=== PATIENT | male | born 1995 | race African-American/Black ===

== ENCOUNTER 2025-01-06 15:46 | Emergency (ER) | payer MEDICAID, SELFPAY ==
--- NOTE | ~2025-01-06 | XR_ITS ---
CHEST RADIOGRAPH, PA AND LATERAL CLINICAL HISTORY: cough, BODY ACHES, CHILLS, SORE THROAT FOR 5 DAYS . COMPARISON: None available TECHNIQUE: PA and lateral views of the chest. FINDINGS The cardiomediastinal silhouette is unremarkable. The lungs are clear. Visualized osseous structures and soft tissues are unremarkable. IMPRESSION: No focal infiltrate or effusion. Reviewed, dictated and finalized at location A.
[2025-01-06 15:50] VITALS: BP 145/75; PULSE 80; RESP 18; TEMP 37.3; O2SAT 99
[2025-01-06 19:06] LABS: Strep Group A RT-PCR NOT DETECTED (Negative)
[2025-01-06 19:18] LABS: Influenza A QL RT-PCR Negative (Negative); Influenza B QL RT-PCR Negative (Negative); RSV RNA, RT-PCR Negative (Negative); SARS-CoV-2 RNA PCR Negative (Negative)
--- NOTE | 2025-01-06 19:22 | ED_ITS ---
HPI - General Adult General Chief complaint: Unspecified Stated complaint: not feel well Time Seen by Provider: 01/06/25 18:02 History of Present Illness HPI narrative: 29-year-old female patient presenting to the emergency department for evaluation of pharyngitis type symptoms. She has been having myalgias, sore throat, scratchy throat sensation and pain with swallowing for last 5 days. Endorses fever and chills. Tolerating oral intake without difficulty. Remote history of multiple episodes of pharyngitis in childhood. No recent episodes and has never been evaluated for tonsillectomy or adenoidectomy. No trauma or injury. She was otherwise in her normal state of health. Related Data Allergies Allergy/AdvReac Type Severity Reaction Status Date / Time No Known Allergies Allergy Verified 01/06/25 19:29 Review of Systems Review of Systems: As reviewed above in HPI Exam Narrative: GENERAL: [Well-appearing, well-nourished, and in no acute distress.] HEAD: [Normocephalic, atraumatic.] EYES: [PERRLA and EOMI.] ENT: Posterior oropharyngeal erythema with enlargement on the tonsillar pillars with exudate, midline uvula, no difficulty tolerating oral secretions, swelling appropriately. Tender lymphadenopathy. NECK: Supple. CHEST: [Clear to auscultation. No respiratory distress.] HEART: [Regular rate and rhythm]. No murmur heard. [Normal peripheral pulses.] ABDOMEN: [Soft, nondistended], [nontender], [No rigidity or guarding] EXTREMITIES: Normal range of motion. [No edema.] SKIN: Warm, dry, no rash. NEURO: [No focal deficits]. Alert and oriented [x3.] PSYCH: [Normal mood and affect.] Course Vital Signs Vital signs: Vital Signs Temperature 37.3 C 01/06/25 15:50 Pulse Rate 80 01/06/25 15:50 Respiratory Rate 18 01/06/25 15:50 Blood Pressure 145/75 H 01/06/25 15:50 Pulse Oximetry 99 01/06/25 15:50 Oxygen Delivery Room Air 01/06/25 15:50 Temperature 37.3 C 01/06/25 15:50 Pulse Rate 80 01/06/25 15:50 Respiratory Rate 18 01/06/25 15:50 Blood Pressure 145/75 H 01/06/25 15:50 Pulse Oximetry 99 01/06/25 15:50 Oxygen Delivery Room Air 01/06/25 15:50 Medical Decision Making MDM Narrative Medical decision making narrative: 29-year-old female presenting to the emergency room with pharyngitis type symptoms. Endorsing fever and chills, duration of symptoms ongoing for 5 days. Posterior or pharyngeal erythema and exudates with sore throat symptoms. She is afebrile here with normal vital signs otherwise. Given Decadron for pharyngitis, strep throat, COVID swabs and chest x-ray obtained. Chest x-ray shows no acute findings. Strep negative, COVID panel negative. Discussed with her about antibiotics versus viral etiologies for treatment. Patient will be given a prescription for amoxicillin 10 days. Encouraged to follow-up with ENT on outpatient basis for further evaluation and possible elective surgical procedures if this is a recurrent issue from the sounds of her history. Patient comfortable with the plan and safely discharged home at this time. Medical Records Medical records reviewed: Yes I reviewed the external patient's medical records. Vital Signs Vital Signs: Vital Signs Temperature 37.3 C 01/06/25 15:50 Pulse Rate 80 01/06/25 15:50 Respiratory Rate 18 01/06/25 15:50 Blood Pressure 145/75 H 01/06/25 15:50 Pulse Oximetry 99 01/06/25 15:50 Oxygen Delivery Room Air 01/06/25 15:50 Temperature 37.3 C 01/06/25 15:50 Pulse Rate 80 01/06/25 15:50 Respiratory Rate 18 01/06/25 15:50 Blood Pressure 145/75 H 01/06/25 15:50 Pulse Oximetry 99 01/06/25 15:50 Oxygen Delivery Room Air 01/06/25 15:50 Lab Data Lab results reviewed: Yes I reviewed the patient's lab results. Labs: Lab Results 01/06/25 Range/Units 18:32 Influenza A (RT-PCR) Negative (Negative) Influenza B (RT-PCR) Negative (Negative) RSV (RT-PCR) Negative (Negative) SARS-CoV-2 RNA (RT-PCR) Negative (Negative) Group A Strep (PCR) Not detected (Negative) Imaging Data Attestation: I personally reviewed and interpreted this imaging study as follows: My impression: Impressions Chest X-Ray 01/06/25 18:21 IMPRESSION: No focal infiltrate or effusion. Discharge Plan Discharge Clinical Impression: Pharyngitis, Acute tonsillitis Patient Disposition: Home Condition: Stable Instructions: Antibiotic Form, Pharyngitis (ED), Tonsillitis (ED) Additional Instructions: Your symptoms are consistent with tonsillitis/pharyngitis which we will treat with a course of steroids that you received here in the emergency department as well as antibiotics. Most pharyngitis is viral in nature and antibiotics might not be helpful but given your recurrent history of this we will treat this and refer you to ENT. Follow-up with them on outpatient basis. Return with any new or worsening concerns. Patient Language: Indian Prescriptions: New amoxicillin 500 mg capsule 500 mg PO Q12H 10 Days Qty: 20 0RF Follow-up/Referrals: Peter Fletcher MD [Physician] - 1 Week (Recurrent pharyngitis/tonsillitis) PHYSICIAN,TERMITE CONTROL REPRESENTATIVE [Primary Care Provider] - Time of Disposition: 19:27
[2025-01-06] MEDS: dexAMETHasone SOD PHOS INJ 10 MG/ML 1 ML VIAL IM (19:30)
[2025-01-06] MEDS: AMOXICILLIN 500 MG CAPSULE PO (19:30)
== END 2025-01-06 19:42 | disposition home or self-care (01) ==
PROVIDERS: Emergency Provider Student in an Organized Health Care Education/Training Program
DX: J03.90 Acute tonsillitis, unspecified (principal); Z20.822 Contact with and (suspected) exposure to COVID-19
CPT/HCPCS: 71046; 87637; 87651; 96372; 99283; A9270; J1100